=== PATIENT | male | born 1975 | race Caucasian/White ===

== ENCOUNTER → 2023-09-14 08:28 | Outpatient (REF) | payer OTHER, SELFPAY ==
--- NOTE | 2023-09-14 09:20 | CARDSERVDEF ---
Echocardiogram with Definity completed after protocol screening completed. Allergies verified.
Patent IV site: __Rt AC__
IV site flushed with 0.9% NaCl pre and post administration.
Diluted bolus method utilized to enhance visualization of ventricular velez.
Total volume given: _5.5__ mL
Patient tolerated all procedures well without complications.
#22 stevan placed Rt AC. Definity given for stress ECHO. INT d/c'd. dsg applied. Pressure held. no bleeding noted.
== END ==
LOC: RCS 08:28
PROVIDERS: ATTENDING PHYSICIAN Nuclear Medicine Nuclear Cardiology; FAMILY PHYSICIAN Family Medicine
DX: I10 Essential (primary) hypertension (principal); Z95.2 Presence of prosthetic heart valve; E78.2 Mixed hyperlipidemia; I45.10 Unspecified right bundle-branch block
CPT/HCPCS: 93017; 93350; Q9957

== ENCOUNTER → 2023-10-12 10:14 | Outpatient (REF) | payer OTHER, SELFPAY ==
--- NOTE | 2023-10-12 11:39 | CARDSERVLU ---
Echocardiogram with Lumason completed after protocol screening completed. Allergies verified.
Patent IV site: _Left median antecubital 22 G PC____
IV site flushed with 0.9% NaCl pre and post administration.
Diluted bolus method utilized to enhance visualization of ventricular velez.
Total volume given: __5_ mL
Patient tolerated all procedures well without complications.
Heplock D/C ed at 1137, site clear, no redness, no edema. Pressure held, no bleeding, 2x2 applied and taped. Pt offers no complaints.
== END ==
LOC: RCS 10:14
PROVIDERS: ATTENDING PHYSICIAN Nuclear Medicine Nuclear Cardiology; FAMILY PHYSICIAN Family Medicine
DX: I10 Essential (primary) hypertension (principal)
CPT/HCPCS: 93306; Q9950

== ENCOUNTER → 2023-11-29 06:23 | Day surgery (SDC) | payer OTHER, SELFPAY | LOC: GI 06:23 | PROVIDERS: ATTENDING PHYSICIAN Internal Medicine | DX: Z12.11 Encounter for screening for malignant neoplasm of colon (principal); K63.5 Polyp of colon; D17.5 Benign lipomatous neoplasm of intra-abdominal organs; K57.30 Diverticulosis of large intestine without perforation or abscess without bleeding; K64.9 Unspecified hemorrhoids; K22.81 Esophageal polyp; K22.89 Other specified disease of esophagus; K21.00 Gastro-esophageal reflux disease with esophagitis, without bleeding; K31.89 Other diseases of stomach and duodenum; Z13.810 Encounter for screening for upper gastrointestinal disorder | CPT/HCPCS: 45385; 45380; 43239; 88305; 88342 ==